=== PATIENT | female | born 1995 ===

== ENCOUNTER 2016-09-03 09:04 | Emergency (ER) | payer BC ==
[2016-09-03 10:22] VITALS: BP 124/69
--- NOTE | 2016-09-03 10:30 | UC ---
Throat Pain/Nasal Terrance HPI - HPI Summary HPI Summary: discomfort in throat x 2 days, worse at night. No fever. Some chills. - History of Current Complaint Chief Complaint: UCRespiratory Stated Complaint: SORE THROAT Time Seen by Provider: 09/03/16 10:15 Hx Obtained From: Patient Hx Last Menstrual Period: 08/09/16 Onset/Duration: Gradual Onset, Lasting Days, Still Present Severity: Moderate Pain Intensity: 6 Pain Scale Used: 0-10 Numeric Cough: Nonproductive Associated Signs & Symptoms: Positive: Dysphagia, Hoarseness. Negative: Fever, Rash - Allergies/Home Medications Allergies/Adverse Reactions: Allergies Allergy/AdvReac Type Severity Reaction Status Date / Time No Known Allergies Allergy Verified 09/03/16 10:21 Home Medications: Home Medications Levonorgestrel & Eth Estradiol [Orsythia] 1 tab PO BEDTIME 09/03/16 [History Confirmed 09/03/16] PMH/Surg Hx/FS Hx/Imm Hx Endocrine History Of: Reports: Dyslipidemia - Surgical History Surgical History: None - Family History Known Family History: Positive: Diabetes - grandmother, Other - hyperlipidemia - Social History Occupation: Student Alcohol Use: Occasionally Substance Use Type: None Smoking Status (MU): Never Smoked Tobacco Review of Systems Constitutional: Chills Skin: Negative ENT: Sore Throat Respiratory: Cough Gastrointestinal: Negative Neurological: Negative Psychological: Negative All Other Systems Reviewed And Are Negative: Yes Physical Exam Triage Information Reviewed: Yes Appearance: Well-Nourished, Ill-Appearing - mild, Pain Distress Vital Signs: Initial Vital Signs Temp 97.8 F 09/03/16 10:15 Pulse 60 09/03/16 10:15 Resp 16 09/03/16 10:15 BP 124/69 09/03/16 10:15 Pulse Ox 100 09/03/16 10:15 Vital Signs Reviewed: Yes Eyes: Positive: Conjunctiva Clear ENT: Positive: Pharyngeal erythema, TMs normal, Tonsillar swelling. Negative: Tonsillar exudate Neck: Positive: Supple, Nontender, Other: - fullness in thyroid, no mass or nodule Respiratory: Positive: Lungs clear, Normal breath sounds, No respiratory distress Cardiovascular: Positive: RRR, No Murmur, Pulses Normal, Brisk Capillary Refill Musculoskeletal: Positive: Strength Intact, ROM Intact Neurological: Positive: Alert, Muscle Tone Normal Psychological Exam: Normal Skin Exam: Normal Throat Pain/Nasal Course/Dx - Course Course Of Treatment: rapid A neg - Differential Dx/Diagnosis Differential Diagnosis/HQI/PQRI: Influenza, Otitis Media, Pharyngitis, Sinusitis , URI Provider Diagnoses: viral pharyngitis Discharge - Discharge Plan Condition: Stable Disposition: HOME Patient Education Materials: Pharyngitis (ED) Referrals: Non Staff,Doctor [Primary Care Provider] - Additional Instructions: Follow up with [facility] services or urgent care if any new or worsening symptoms.
== END 2016-09-03 11:10 | disposition home or self-care (01) ==
LOC: UCCORT 09:04
DX: J02.9 Acute pharyngitis, unspecified (principal)
CPT/HCPCS: 87651; 99201; G0463

== ENCOUNTER 2016-09-20 12:37 | Emergency (ER) | payer BC | END 2016-09-20 14:19 | disposition left against medical advice (07) | LOC: UCCORT 12:37 | DX: H02.846 Edema of left eye, unspecified eyelid (principal); H02.843 Edema of right eye, unspecified eyelid; Z53.21 Procedure and treatment not carried out due to patient leaving prior to being seen by health care provider ==

== ENCOUNTER 2016-09-21 09:04 | Emergency (ER) | payer BC ==
[2016-09-21 10:03] VITALS: BP 116/60
--- NOTE | 2016-09-21 10:28 | UC ---
Skin Complaint HPI - HPI Summary HPI Summary: Noticed dark/reddish flat areas below eyes about 2 weeks ago. Pt thought it might be her moisturizer and stopped using it, has continued using her makeup. Says areas sting a little, no itching or drainage. - History of Current Complaint Chief Complaint: UCEye Time Seen by Provider: 09/21/16 10:00 Stated Complaint: skin complaint Hx Obtained From: Patient Hx Last Menstrual Period: 09/13/16 ?: No Onset/Duration: Gradual Onset, Lasting Weeks Timing: Constant Onset Severity: Mild Current Severity: Mild Location: Face Character: Redness Aggravating: Touch Alleviating: Nothing Associated Signs & Symptoms: Positive: Rash - Allergy/Home Medications Allergies/Adverse Reactions: Allergies Allergy/AdvReac Type Severity Reaction Status Date / Time No Known Allergies Allergy Verified 09/03/16 10:21 Review of Systems Constitutional: Negative Skin: Rash Eyes: Negative ENT: Negative Respiratory: Negative Cardiovascular: Negative Gastrointestinal: Negative Genitourinary: Negative Motor: Negative Neurovascular: Negative Musculoskeletal: Negative Neurological: Negative Psychological: Negative All Other Systems Reviewed And Are Negative: Yes PMH/Surg Hx/FS Hx/Imm Hx Endocrine History Of: Reports: Dyslipidemia - Surgical History Surgical History: None - Family History Known Family History: Positive: Diabetes - grandmother, Other - hyperlipidemia - Social History Alcohol Use: Occasionally Substance Use Type: None Smoking Status (MU): Never Smoked Tobacco Physical Exam Triage Information Reviewed: Yes Appearance: Well-Appearing, No Pain Distress, Well-Nourished Vital Signs: Initial Vital Signs Temp 98 F 09/21/16 09:57 Pulse 76 09/21/16 09:57 Resp 14 09/21/16 09:57 BP 116/60 09/21/16 09:57 Pulse Ox 99 09/21/16 09:57 Vital Signs Reviewed: Yes Eye Exam: Normal, Other - PERRL Eyes: Positive: Conjunctiva Clear ENT Exam: Normal ENT: Positive: Normal ENT inspection, Hearing grossly normal, Pharynx normal, TMs normal Dental Exam: Normal Neck exam: Normal Neck: Positive: Supple, Nontender, No Lymphadenopathy Respiratory Exam: Normal Respiratory: Positive: Chest non-tender, Lungs clear, Normal breath sounds, No respiratory distress, No accessory muscle use Cardiovascular Exam: Normal Cardiovascular: Positive: RRR, No Murmur Musculoskeletal Exam: Normal Neurological Exam: Normal Neurological: Positive: Alert Psychological Exam: Normal Skin Exam: Other - brownish red confluent plaques on skin below eyes, minimal scaling Course/Dx - Diagnoses Provider Diagnoses: Contact dermatitis Discharge - Discharge Plan Condition: Stable Disposition: HOME Prescriptions: Triamcinolone 0.025% CM(NF) [Kenalog Cream 0.025%*] 1 applic TOPICAL BID #15 gm Patient Education Materials: Contact Dermatitis (ED) Referrals: Non Staff,Doctor [Primary Care Provider] - Additional Instructions: As we discussed, this rash should permanently go away after using the cream for about a week. If the rash persists, or if it comes right back after you stop using the cream, please stop the medicine and see a plate worker helper as soon as you can get an appointment. Do not use the cream for more than 7 days in a row. Once you have taken a break of at least 7 days, you can resume using it for another week.
== END 2016-09-21 10:35 | disposition home or self-care (01) ==
LOC: UCCORT 09:04
DX: L25.9 Unspecified contact dermatitis, unspecified cause (principal); E78.5 Hyperlipidemia, unspecified
CPT/HCPCS: 99212; G0463

== ENCOUNTER 2016-10-02 07:06 | Emergency (ER) | payer BC ==
[2016-10-02 07:20] VITALS: BP 110/60
--- NOTE | 2016-10-02 07:31 | UC ---
Throat Pain/Nasal Terrance HPI - HPI Summary HPI Summary: cough x 2 days + nasal congestion, sore throat no fever, no chills - History of Current Complaint Chief Complaint: UCRespiratory Stated Complaint: HEADACHE,COUGH,SORE THROAT Time Seen by Provider: 10/02/16 07:23 Hx Obtained From: Patient Hx Last Menstrual Period: "Almost a month ago." ?: No Onset/Duration: Gradual Onset, Lasting Days - 2, Still Present Severity: Moderate Cough: Sputum Appears - yellow Associated Signs & Symptoms: Positive: Sinus Discomfort, Nasal Discharge. Negative: Wheezing, Fever, Rash - Allergies/Home Medications Allergies/Adverse Reactions: Allergies Allergy/AdvReac Type Severity Reaction Status Date / Time No Known Allergies Allergy Verified 10/02/16 07:12 Home Medications: Home Medications GuaiFENesin DM* [Robitussin DM*] 10 ml PO Q4H PRN 10/02/16 [History Confirmed ] PMH/Surg Hx/FS Hx/Imm Hx Previously Healthy: Yes Endocrine History Of: Reports: Dyslipidemia - Surgical History Surgical History: None - Family History Known Family History: Positive: Diabetes - grandmother, Other - hyperlipidemia - Social History Alcohol Use: Occasionally Substance Use Type: None Smoking Status (MU): Never Smoked Tobacco - Immunization History Most Recent Influenza Vaccination: March 2016 Review of Systems Constitutional: Chills, Fatigue Skin: Negative Eyes: Negative ENT: Sore Throat, Nasal Discharge Respiratory: Cough Cardiovascular: Negative All Other Systems Reviewed And Are Negative: Yes Physical Exam Triage Information Reviewed: Yes Appearance: Well-Appearing, No Pain Distress, Well-Nourished Vital Signs: Initial Vital Signs Temp 98.4 F 10/02/16 07:10 Pulse 90 10/02/16 07:10 Resp 16 10/02/16 07:10 BP 110/60 10/02/16 07:10 Pulse Ox 99 10/02/16 07:10 Vital Signs Reviewed: Yes Eyes: Positive: Conjunctiva Clear ENT: Positive: Normal ENT inspection, Hearing grossly normal, Pharyngeal erythema, Nasal congestion, Nasal drainage, TMs normal Neck: Positive: Supple, Nontender, No Lymphadenopathy Respiratory: Positive: Chest non-tender, Lungs clear, Normal breath sounds Cardiovascular: Positive: RRR, No Murmur, Pulses Normal Abdominal Exam: Normal Skin Exam: Normal Throat Pain/Nasal Course/Dx - Differential Dx/Diagnosis Provider Diagnoses: URI Discharge - Discharge Plan Condition: Stable Disposition: HOME Patient Education Materials: Upper Respiratory Infection (ED) Forms: *Work Release Referrals: Non Staff,Doctor [Primary Care Provider] - If Needed
== END 2016-10-02 07:33 | disposition home or self-care (01) ==
LOC: UCCORT 07:06
DX: J06.9 Acute upper respiratory infection, unspecified (principal); E78.5 Hyperlipidemia, unspecified
CPT/HCPCS: 99211; G0463

== ENCOUNTER 2017-12-17 09:17 | Emergency (ER) | payer BC ==
[2017-12-17 09:57] VITALS: BP 100/63
--- NOTE | 2017-12-17 10:29 | UC ---
Abdominal Pain Female HPI - HPI Summary HPI Summary: The patient is a 22-year-old female with a long-standing history of acid reflux. She had a particularly bad episode last night. This a.m. she is feeling much improved. She used to take Prevacid. She has no change in bowel habits. She has not had any weight loss or weight gain. She has not had any surgeries on her abdomen. Last night she had 2 episodes of vomiting. - History of Current Complaint Chief Complaint: UCGI Stated Complaint: VOMITING,COUGH Time Seen by Provider: 12/17/17 10:05 Hx Obtained From: Patient Hx Last Menstrual Period: 12/01/17 Onset/Duration: Gradual Onset, Lasting Hours Timing: Constant Severity Initially: Moderate Severity Currently: None Pain Intensity: 0 Pain Scale Used: 0-10 Numeric Location: Epigastric Character: Not Applicable Aggravating Factor(s): Other: Alleviating Factor(s): Nothing Associated Signs and Symptoms: Positive: Nausea, Vomiting Simlar Episode/Dx as:: GERD Allergies/Adverse Reactions: Allergies Allergy/AdvReac Type Severity Reaction Status Date / Time No Known Allergies Allergy Verified 12/17/17 09:57 PMH/Surg Hx/FS Hx/Imm Hx Previously Healthy: Yes GI/ History: Gastroesophageal Reflux - Surgical History Surgical History: None - Family History Known Family History: Positive: Diabetes - grandmother, Other - hyperlipidemia - Social History Alcohol Use: Occasionally Substance Use Type: None Smoking Status (MU): Never Smoked Tobacco - Immunization History Most Recent Influenza Vaccination: March 2016 Review of Systems Constitutional: Negative Skin: Negative Eyes: Negative ENT: Negative Respiratory: Negative Cardiovascular: Negative Gastrointestinal: Abdominal Pain, Vomiting, Nausea Genitourinary: Negative Motor: Negative Neurovascular: Negative Musculoskeletal: Negative Neurological: Negative Psychological: Negative Is Patient Immunocompromised?: No All Other Systems Reviewed And Are Negative: Yes Physical Exam Triage Information Reviewed: Yes Appearance: Well-Appearing, No Pain Distress, Well-Nourished Vital Signs: Initial Vital Signs Temp 98.2 F 12/17/17 09:49 Pulse 68 12/17/17 09:49 Resp 14 12/17/17 09:49 BP 100/63 12/17/17 09:49 Pulse Ox 100 12/17/17 09:49 Vital Signs Reviewed: Yes Eyes: Positive: Conjunctiva Clear ENT: Positive: Hearing grossly normal. Negative: Nasal congestion, Nasal drainage, Trismus, Muffled voice, Hoarse voice Dental Exam: Normal Neck: Positive: Supple, Nontender, No Lymphadenopathy Respiratory: Positive: Lungs clear, Normal breath sounds, No respiratory distress Cardiovascular: Positive: RRR, No Murmur Abdomen Description: Positive: Nontender, No Organomegaly, Soft. Negative: Bruit, CVA Tenderness (R), CVA Tenderness (L), Distended, Guarding Bowel Sounds: Positive: Present Musculoskeletal Exam: Normal Neurological Exam: Normal Psychological Exam: Normal Skin Exam: Normal Abd Pain Female Course/Dx - Differential Dx/Diagnosis Provider Diagnoses: GERD. gastritis Discharge - Sign-Out/Discharge Documenting (check all that apply): Discharge/Admit/Transfer - Discharge Plan Condition: Stable Disposition: HOME Prescriptions: Famotidine TAB* [Pepcid 20 MG TAB*] 20 mg PO DAILY #14 tab Patient Education Materials: Gastroesophageal Reflux Disease (ED) Referrals: Hunter Whitfield MD [Medical Doctor] - As Soon As Possible Additional Instructions: mylanta 30 ml (2 tablespoons) every 2 hours while awake for 2-3 days recheck for new or worsening symptoms I suggest GI referral - Billing Disposition and Condition Condition: STABLE Disposition: Home
== END 2017-12-17 10:40 | disposition home or self-care (01) ==
LOC: UCCORT 09:17
DX: K21.9 Gastro-esophageal reflux disease without esophagitis (principal); K29.70 Gastritis, unspecified, without bleeding
CPT/HCPCS: 99212; G0463